=== PATIENT | male | born 1980 | race Hispanic/Latino ===

== ENCOUNTER 2020-07-23 07:53 | Day surgery (SDC) | payer BC ==
[2020-07-17 15:10] LABS: BASOPHILS % (AUTO) 0.7 % (0.0-5.0); EOSINOPHILS % (AUTO) 1.6 % (0.0-8.0); HEMATOCRIT 45.4 % (42-54); LYMPHOCYTES % (AUTO) 32.7 % (21.0-51.0); MEAN CORPUSCULAR HEMOGLOBIN 29.3 pg (27.0-33.0); MEAN CORPUSCULAR HGB CONC 33.3 g/dL (32.0-36.0); MONOCYTES % (AUTO) 7.4 % (3.0-13.0); NEUTROPHILS % (AUTO) 57.3 % (40.0-77.0); PLATELET COUNT (AUTO) 244 K/uL (130-400); RED BLOOD CELL COUNT(AUTO) 5.16 MIL/uL (4.50-6.20); RED CELL DISTRIBUTION WIDTH 12.6 % (11.0-15.5)
[2020-07-17 15:35] LABS: INR 0.98 (0.85-1.15); PARTIAL THROMBOPLASTIN TIME 26.1 SEC (26.3-35.5); PROTHROMBIN TIME 10.6 SEC (9.6-11.6)
[2020-07-17 15:36] LABS: CREATININE 0.8 mg/dL (0.5-1.5); POTASSIUM 3.5 mmol/L (3.5-5.1)
[2020-07-22 10:03] VITALS: BP 151/93
[2020-07-23] VITALS (16 sets, daily range): BP systolic 115–152; BP diastolic 76–92
[~2020-07-23] VITALS: Ht 170.9 cm; Wt 89.4 kg
[2020-07-23] MEDS ORDERED: METF-444 PO (08:51)
[2020-07-23] MEDS ORDERED: SEMA3TAB PO (08:51)
[2020-07-23] MEDS ORDERED: SIMV-43 PO (08:51)
[2020-07-23] MEDS ORDERED: LEVO25TA54 PO (08:51)
[2020-07-23] MEDS ORDERED: LOSA50TA64 PO (08:51)
[2020-07-23] MEDS: CEFAZOLIN SODIUM 1 GM VIAL ONE ×2 (08:58→10:30)
[2020-07-23] MEDS ORDERED: SODIUM CHLORIDE 0.9% 1000ML 1,000 ML IV ONE (08:59)
[2020-07-23] MEDS ORDERED: BUPIVACAINE/PF 0.25% 30ML VIAL IJ ONE (10:03)
[2020-07-23] MEDS ORDERED: BACITRACIN 28.4 GM OINT TP ONE (10:03)
[2020-07-23] MEDS ORDERED: MIDAZOLAM HCL 1 MG/ML 2ML VIAL ONE (10:07)
[2020-07-23] MEDS ORDERED: PROPOFOL 10 MG/ML 20ML VIAL IV ONE (10:07)
[2020-07-23] MEDS ORDERED: FENTANYL CITRATE PF 50 MCG/1 ML 2ML VIAL ONE (10:08)
[2020-07-23] MEDS ORDERED: SUCCINYLCHOLINE 200MG/10ML SYR ONE (10:12)
[2020-07-23] MEDS ORDERED: ROCURONIUM 10MG/1ML SYR 10 MG/ML ML ONE (10:25)
[2020-07-23] MEDS ORDERED: DEXAMETHASONE SOD PHOSPHATE 4 MG/ML 1ML VIAL ONE (10:26)
[2020-07-23] MEDS ORDERED: GLYCOPYRROLATE 1 MG/5 ML SYRINGE ONE (10:27)
[2020-07-23] MEDS ORDERED: ONDANSETRON HCL 4 MG/2 ML VIAL ONE (10:27)
[2020-07-23] MEDS ORDERED: NEOSTIGMINE 5MG/5ML SYR IV ONE (10:27)
[2020-07-23] MEDS ORDERED: PHENYLEPHRINE HCL 10 MG/ML 1ML VIAL IV ONE (10:57)
--- NOTE | 2020-07-23 12:25 | NUR ---
Day pt arrival Pt arrived fom pacu appears in no apparent distress. Pt oriented to room , Dressing to penile area noted off. Md called and states wrap in gauze.
--- NOTE | 2020-07-23 13:20 | NUR ---
Day Pt Dc Pt discharged home with at bedside for instructions. Wound care instructions given to per Md Recommendation as well as bacitracin application. Pt wheeled to front ER lobby.
== END 2020-07-23 13:20 | disposition home or self-care (01) ==
LOC: DAH 07:53
PROVIDERS: ATTEND Urology
DX: N47.1 Phimosis (principal); Z20.828 Contact with and (suspected) exposure to other viral communicable diseases; I10 Essential (primary) hypertension; E78.5 Hyperlipidemia, unspecified; E11.9 Type 2 diabetes mellitus without complications; E66.9 Obesity, unspecified; Z79.01 Long term (current) use of anticoagulants; Z79.899 Other long term (current) drug therapy
CPT/HCPCS: 36415; 54161; 80048; 82948 ×2; 85025; 85610; 85730; A4215 ×2; A4216 ×2; A4221 ×2; A4222 ×2; A4223 ×6; A4600; A4606 ×2; A4663 ×2; C9803; J0330; J0690; J1100; J2250; J2370; J2405; J2704; J2710; J3010; J3490 ×2; J7030; J7120; U0003